=== PATIENT | female | born 1995 | race Caucasian/White ===

== ENCOUNTER 2022-03-09 09:44 | Outpatient (CLI) | payer OTHER ==
[2022-03-09 23:05] LABS: SARS-CoV-2 PCR by NAA Not Detected (NotDetected)
== END 2022-03-09 09:45 | disposition home or self-care (01) ==
LOC: CSHLAB 09:44
PROVIDERS: ATTEND Advanced Practice Midwife
DX: Z20.822 Contact with and (suspected) exposure to COVID-19 (principal)
CPT/HCPCS: U0003; U0005

== ENCOUNTER 2022-03-09 20:13 | Inpatient (IN) | payer OTHER ==
[~2022-03-09 20:13] MED LIST: Bupivacaine 0.25% HCL 30 ML VIAL ONE; Terbutaline Sulfate 1 MG/ML VIAL ONE
[2022-03-09 20:53] LABS: Fetal Membranes Rupture RUPTURE DETECTED (No Rupture)
[2022-03-09] MEDS ORDERED: Ondansetron PF 4 MG/2 ML Vial IVP PRN (21:36)
[2022-03-09] MEDS ORDERED: Lidocaine 1% (PF) 30 ML VIAL SC PRN (21:36)
[2022-03-09] MEDS ORDERED: hydrALAZINE 20 MG/ML VIAL SLOW IVP PRN (21:36)
[2022-03-09] MEDS ORDERED: HYDROcodone/Acetaminophen 5/325 mg Tablet PO PRN (21:36)
[2022-03-09] MEDS ORDERED: Butorphanol Tartrate 1 MG/ML VIAL SLOW IVP PRN (21:36)
[2022-03-09] MEDS ORDERED: Promethazine HCl 25 MG/ML VIAL IM PRN (21:36)
[2022-03-09] MEDS ORDERED: Ibuprofen 800 MG TAB PO PRN (21:36)
[2022-03-09 21:43] VITALS: BMI 29.1
[2022-03-09] MEDS ORDERED: Lactated Ringer's 1,000 ML IV SCH ×2 (21:45)
[2022-03-09 22:34] LABS: Hemoglobin 12.9 g/dL (12.0-15.5); Mean Corpuscular HGB CONC 34.3 g/dL (32.0-36.0); Mean Corpuscular Hemoglobin 30.9 pg (27.0-33.0); Mean Corpuscular Volume 90.2 fl (81.6-98.3); Mean Platelet Volume 9.6 fl (7.4-10.4); Platelet Count 288 10x3/uL (150-450); RBC Distribution Width 12.2 % (11.5-14.5); Red Blood Cell (RBC) Count 4.17 10x6/uL (3.90-5.03); White Blood Cell (WBC) Count 12.8 10x3/uL (3.5-10.5)
[2022-03-09 23:05] LABS: Hep B Surf Ag Non-Reactive S/CO (NonReactive); Syphilis Antibody Nonreactive (Nonreactive); Syphilis Antibody Index 0.06 S/CO (<1.00 Non-Reactive)
[2022-03-09 23:07] LABS: HBSAg Index 0.15 S/CO (0-0.99)
[2022-03-09] MEDS ORDERED: Fentanyl 2 mcg/Bup 0.1% Cadd 100 ML ONE (23:14)
[2022-03-10] MEDS ORDERED: Naloxone HCl 0.4 mg/ml Vial IVP PRN ×2 (00:51)
[2022-03-10] MEDS ORDERED: Acetaminophen 325 MG TAB PO PRN (00:51)
[2022-03-10] MEDS ORDERED: Promethazine HCl 25 MG/ML VIAL IM PRN (00:51)
[2022-03-10] MEDS ORDERED: Ondansetron PF 4 MG/2 ML Vial IVP PRN ×2 (00:51→15:33)
[2022-03-10] MEDS ORDERED: Hydrocerin (Eucerin) Cream 120 gm Jar TOP PRN (00:51)
[2022-03-10] MEDS ORDERED: ePHEDrine Sulfate 50 MG/10 ML VIAL SLOW IVP PRN (00:51)
[2022-03-10] MEDS ORDERED: diphenhydrAMINE 50 MG/ML VIAL IVP PRN (00:51)
[2022-03-10] MEDS ORDERED: Communication Order-Pharmacy FS SCH (01:00)
[2022-03-10] MEDS ORDERED: Fentanyl 2 mcg/Bupivacaine 0.1% Cassette 100 ML EPIDURAL SCH (01:00)
[2022-03-10] MEDS ORDERED: Lactated Ringer's 500 ML IV PRN (01:18)
[2022-03-10] MEDS ORDERED: Misoprostol 100 MCG TAB ONE (01:21)
[2022-03-10] MEDS ORDERED: Misoprostol 100 MCG TAB PO SCH (01:30)
[2022-03-10] MEDS: NS w/ Oxytocin 30 units 500 ML IV SCH ×2 (04:14→14:09)
[2022-03-10 13:39] LABS: RapidComm Collect By CBN
[2022-03-10 13:40] LABS: RapidComm Collect By CBN; pH (Cord, venous) 7.172 (7.250-7.350)
[2022-03-10] MEDS ORDERED: Benzocaine-Menthol 82.5 ML CAN TOP PRN (15:33)
[2022-03-10] MEDS ORDERED: HYDROcodone/Acetaminophen 5/325 mg Tablet PO PRN ×2 (15:33)
[2022-03-10] MEDS ORDERED: Misoprostol 200 MCG TAB VAG PRN (15:33)
[2022-03-10] MEDS ORDERED: Milk Of Magnesia 30 ML UDCUP PO PRN (15:33)
[2022-03-10] MEDS ORDERED: Bisacodyl 10 MG SUPP PR PRN (15:33)
[2022-03-10] MEDS ORDERED: NS w/ Oxytocin 30 units 500 ML IV SCH (15:33)
[2022-03-10] MEDS ORDERED: hydrALAZINE 20 MG/ML VIAL SLOW IVP PRN (15:33)
[2022-03-10] MEDS: Ferrous Sulfate 325 MG TAB PO SCH (16:01)
[2022-03-10] MEDS: Ibuprofen 800 MG TAB PO SCH ×2 (16:01→17:13)
[2022-03-10] MEDS: Docusate 100 MG CAP PO SCH (21:38)
[2022-03-11] MEDS: Ibuprofen 800 MG TAB PO SCH ×3 (00:38→18:20)
[2022-03-11] MEDS: Ferrous Sulfate 325 MG TAB PO SCH ×2 (08:20→18:12)
[2022-03-11] MEDS: Docusate 100 MG CAP PO SCH ×2 (08:54→21:04)
[2022-03-12] MEDS: Ibuprofen 800 MG TAB PO SCH ×3 (04:12→13:10)
[2022-03-12] MEDS: Ferrous Sulfate 325 MG TAB PO SCH ×2 (07:07→15:42)
[2022-03-12 08:02] VITALS: BP 133/67; TEMP 98.5
[2022-03-12] MEDS: Docusate 100 MG CAP PO SCH (08:10)
== END 2022-03-12 17:45 | disposition home or self-care (01) | DRG 807 ==
LOC: CSHLD/OP 20:13 → CSHLD 21:21 → CSHPP 03-10 15:12
PROVIDERS: ADMIT Obstetrics & Gynecology; ATTEND Obstetrics & Gynecology
PROC: 10D07Z6 Extraction of Products of Conception, Vacuum, Via Natural or Artificial Opening (ICD-10-PCS; principal; 2022-03-10)
PROC: 0HQ9XZZ Repair Perineum Skin, External Approach (ICD-10-PCS; 2022-03-10)
PROC: 3E0334Z Introduction of Serum, Toxoid and Vaccine into Peripheral Vein, Percutaneous Approach (ICD-10-PCS; 2022-03-10)
DX: O42.02 Full-term premature rupture of membranes, onset of labor within 24 hours of rupture (principal); Z37.0 Single live birth; O76 Abnormality in fetal heart rate and rhythm complicating labor and delivery; Z3A.40 40 weeks gestation of pregnancy; O70.0 First degree perineal laceration during delivery; O66.0 Obstructed labor due to shoulder dystocia; Z88.8 Allergy status to other drugs, medicaments and biological substances; Z79.899 Other long term (current) drug therapy; O26.893 Other specified pregnancy related conditions, third trimester; Z67.11 Type A blood, Rh negative
CPT/HCPCS: 36415; 51702; 82805; 84112; 85027; 85461; 86780; 86850; 86900; 86901; 87340; 90384; 96372; 99285; J1200; J2590; J3105; S0020; U0003; U0005